=== PATIENT | female | born 1940 | race Caucasian/White ===

== ENCOUNTER 2019-08-13 14:52 | Emergency (ER) | payer OTHER ==
[~2019-08-13] VITALS: Ht 160 cm; Wt 59.0 kg
--- NOTE | 2019-08-13 15:18 | NUR ---
Placed in room 8 . Placed on surveillance system monitor, blood pressure machine and pulse oximeter. To gown for exam. Side rails up. Report given to ALANIS Padron.
[2019-08-13 15:20] VITALS: BP_SYST 118
--- NOTE | 2019-08-13 15:30 | NUR ---
Pt AAOx4 BIB ALS from [place] s/p syncopal episode prior to arrival. Skin pink dry and warm, breathing even and unlabored. No other injuries/complaints per pt/noted. Will continue to monitor.
[2019-08-13] MEDS ORDERED: NACL 0.9% 1,000 ML IV ONE (15:31)
--- NOTE | 2019-08-13 15:42 | NUR ---
ER Dr. Culp at bedside examining patient.
[2019-08-13] MEDS ORDERED: HYDR-4038 PO (15:43)
[2019-08-13] MEDS ORDERED: ALEN10TA7 PO (15:43)
[2019-08-13] MEDS ORDERED: ATEN50TA PO (15:43)
[2019-08-13] MEDS ORDERED: NIFE-2 PO (15:43)
[2019-08-13] MEDS ORDERED: LORA-258 PO (15:43)
[2019-08-13] MEDS ORDERED: BENA20TA9 PO (15:43)
[2019-08-13] MEDS ORDERED: DULO60CA41 PO (15:43)
[2019-08-13] MEDS ORDERED: MAGN400T10 PO (15:43)
--- NOTE | 2019-08-13 15:45 | NUR ---
Medication reconciliation completed with information provided by Patient. Any prior medication reconciliation on file was reviewed and corrected.
[2019-08-13 16:05] LABS: BASOPHILS # (AUTO) 0.1 K/uL (0.0-0.2); BASOPHILS % (AUTO) 0.8 % (0.0-2.0); EOSINOPHILS # (AUTO) 0.1 K/uL (0.0-0.4); EOSINOPHILS % (AUTO) 0.8 % (0.0-4.0); LYMPHOCYTES # (AUTO) 1.4 K/uL (1.0-5.5); LYMPHOCYTES % (AUTO) 12.1 % (20.5-51.5); MEAN CORPUSCULAR HEMOGLOBIN 31 pg (27-31); MEAN CORPUSCULAR HGB CONC 33 % (32-36); MEAN CORPUSCULAR VOLUME 93 fL (79.0-98.0); MONOCYTES # (AUTO) 0.9 K/uL (0.0-1.0); MONOCYTES % (AUTO) 7.7 % (1.7-9.3); NEUTROPHILS # (AUTO) 8.9 K/uL (1.8-7.7); NEUTROPHILS % (AUTO) 78.6 % (40.0-70.0); PLATELET COUNT (AUTO) 282 K/uL (130-430); RED BLOOD CELL COUNT(AUTO) 4.18 MIL/uL (4.2-6.2); RED CELL DISTRIBUTION WIDTH 13.6 % (9.0-15.0); WHITE BLOOD COUNT (AUTO) 11.3 K/uL (4.8-10.8)
[2019-08-13 16:13] LABS: ANION GAP 4 (5-15); CALCIUM 9.4 mg/dL (8.4-11.0); CHLORIDE 101 mmol/L (98-107); CREATININE 1.12 mg/dL (0.55-1.30); GLUCOSE 118 mg/dL (70-99); POTASSIUM 4.8 mmol/L (3.5-5.1); SODIUM SERUM 133 mmol/L (136-145); UREA NITROGEN, BLOOD 30 mg/dL (8-21)
[2019-08-13 16:15] LABS: PROTHROMBIN TIME 9.9 SECS (9.5-12.5)
[2019-08-13 16:18] LABS: ALANINE AMINOTRANSFERASE 36 U/L (12-78); ALBUMIN 3.9 g/dL (3.4-4.8); AMYLASE 68 U/L (0-100); ASPARTATE AMINOTRANSFERASE 24 U/L (10-37); LIPASE 79 U/L (73-393); TOTAL BILIRUBIN 0.4 mg/dL (0.0-1.0)
[2019-08-13 16:28] LABS: ALCOHOL, BLOOD < 3 mg/dL (<10)
--- NOTE | 2019-08-13 16:35 | NUR ---
Pt taken to radiology via wheelchair in stable condition
[2019-08-13 18:27] LABS: BARBITURATE, URINE NEGATIVE (NEG <=200); BENZODIAZEPINE, URINE NEGATIVE (NEG <=150); CANNABINOID, URINE NEGATIVE (NEG <=50); COCAINE, URINE NEGATIVE (NEG <=150); METHAMPHETAMINES SCREEN,URINE NEGATIVE (NEG <=500); OPIATE, URINE NEGATIVE (NEG <=100); PHENCYCLIDINE SCREEN,URINE NEGATIVE (NEG <=25); UR TRICYCLIC ANTIDEPRESSANTS NEGATIVE (NEG <=300); URINE AMPHETAMINE NEGATIVE (NEG <=500); URINE METHADONE NEGATIVE (NEG <=200); URINE OXYCODONE SCREEN NEGATIVE (NEG <=100); URINE PROPOXYPHENE SCREEN NEGATIVE (NEG <=300)
--- NOTE | 2019-08-13 18:46 | NUR ---
Urine dip done and given to Dr. Culp
[2019-08-13 19:19] VITALS: BP_SYST 124
--- NOTE | 2019-08-13 19:19 | NUR ---
Patient given written and verbal discharge instructions and verbalizes understanding. ER MD Culp discussed with patient the results and treatment provided. Patient in stable condition. ID arm band removed. IV catheter removed intact and dressing applied, no active bleeding. No Rx given. Patient educated on pain management and to follow up with PMD. Pain Scale 0. Opportunity for questions provided and answered. Medication side effect fact sheet provided.
== END 2019-08-13 19:19 | disposition home or self-care (01) ==
LOC: SED 14:52
DX: R55 Syncope and collapse (principal); I10 Essential (primary) hypertension; R11.2 Nausea with vomiting, unspecified; Z86.73 Personal history of transient ischemic attack (TIA), and cerebral infarction without residual deficits; Z79.899 Other long term (current) drug therapy
CPT/HCPCS: 36415; 70450; 71045; 80053; 80307; 81002; 82150; 82550; 83605; 83690; 84484; 85025; 85610; 85730; 87040; 93005; 96360; 99284; G0481; G0482; J7030; 96361